=== PATIENT | male | born 1965 | race Caucasian/White ===

== ENCOUNTER 2019-06-26 12:36 | Emergency (ER) | payer OTHER ==
[~2019-06-26] VITALS: Ht 188 cm; Wt 72.6 kg
== END 2019-06-26 13:57 | disposition left against medical advice (07) ==
LOC: ER 12:36
DX: S90.811A Abrasion, right foot, initial encounter (principal); S90.812A Abrasion, left foot, initial encounter; X58.XXXA Exposure to other specified factors, initial encounter; Z88.6 Allergy status to analgesic agent; Z88.8 Allergy status to other drugs, medicaments and biological substances; F17.210 Nicotine dependence, cigarettes, uncomplicated
CPT/HCPCS: 73600; 99283-25